=== PATIENT | female | born 1960 | race African-American/Black ===

== ENCOUNTER 2019-03-21 16:13 | Inpatient (IN) | payer OTHER ==
[~2019-03-21] VITALS: Ht 162.6 cm; Wt 102.5 kg
[2019-03-21] MEDS ORDERED: RANI150T7 PO (16:38)
[2019-03-21] MEDS ORDERED: bp meds PO (16:38)
[2019-03-21] MEDS ORDERED: MethylPREDNISolone SOD SUCC 125 MG/2 ML VIAL IVP ONE (16:45)
[2019-03-21] MEDS ORDERED: IPRATROPIUM BROMIDE 0.5 MG/2.5 ML NEB SOLUTION NEB ONE (16:45)
[2019-03-21] MEDS ORDERED: ALBUTEROL SULFATE 2.5 MG/0.5 ML NEB SOLUTION NEB ONE (16:45)
[2019-03-21 16:47] LABS: HEMATOCRIT 46.6 % (36-46); HEMOGLOBIN 15.2 g/dL (12.0-16.0); MEAN CORPUSCULAR HEMOGLOBIN 28.1 pg (26.0-34.0); MEAN CORPUSCULAR HGB CONC 32.6 G/dL (31.0-37.0); MEAN CORPUSCULAR VOLUME 86 fL (80-100); PLATELET COUNT (AUTO) 133 K/uL (150-450); RED BLOOD CELL COUNT(AUTO) 5.42 MIL/uL (4.00-5.20); RED CELL DISTRIBUTION WIDTH 15.9 % (11.5-14.5)
[2019-03-21 16:59] LABS: ANION GAP 8 mmol/L (8-16); CALCIUM, TOTAL 9.1 mg/dL (8.8-10.5); CARBON DIOXIDE 28 mmol/L (22-29); CHLORIDE 97 mmol/L (98-107); CREATININE 1.66 mg/dL (0.60-1.30); GLOMERULAR FILTR. RATE CALC 39 mL/min (>60); GLUCOSE,RANDOM 165 mg/dL (70-110); POTASSIUM 3.9 mmol/L (3.5-5.1); SODIUM SERUM 133 mmol/L (136-145); UREA NITROGEN, BLOOD 23 mg/dL (7-18)
[2019-03-21 16:59] LABS: APPEARANCE,URINE TURBID (CLEAR); GLUCOSE, URINE (UA) NEGATIVE (NEGATIVE); KETONES,URINE NEGATIVE (NEGATIVE); LEUKOCYTE ESTERASE ,URINE MODERATE (NEGATIVE); NITRATE,URINE NEGATIVE (NEGATIVE); OCCULT BLOOD,URINE LARGE (NEGATIVE); PH,URINE 5.5 (5.0-8.0); PROTEIN,URINE SEE CONFIRM (NEGATIVE)
[2019-03-21 17:00] LABS: BILIRUBIN,URINE PRELIM. POSITIVE (NEGATIVE)
[2019-03-21 17:05] LABS: ALANINE AMINOTRANSFERASE 80 U/L (12-78); ALBUMIN 2.7 g/dL (3.4-5.0); ALKALINE PHOSPHATASE 92 U/L (46-116); ASPARTATE AMINOTRANSFERASE 103 U/L (15-37); BILIRUBIN,TOTAL 0.9 mg/dL (0.1-1.0); LIPASE 577 U/L (73-393); TOTAL PROTEIN, SERUM 8.1 g/dL (6.4-8.2)
[2019-03-21 17:09] LABS: AMMONIA < 10 umol/L (11-32); TROPONIN I < 0.02 ng/mL (0.00-0.05)
[2019-03-21 17:13] LABS: SULFOSALICYLIC ACID,URINE 3+ (Negative)
[2019-03-21 17:14] LABS: BACTERIA,URINE Few /HPF (None Seen); SQUAMOUS EPITHELIAL CELL,UR Rare /LPF (None Seen)
[2019-03-21 17:15] LABS: BAND NEUTROPHILS % (MANUAL) 22 % (0-5); LYMPHOCYTES % (MANUAL) 7 % (22-44); MONOCYTES % (MANUAL) 7 % (2-9); SEGMENTED NEUTROPHILS % 64 % (40-70)
[2019-03-21] MEDS ORDERED: LORazepam 2 MG/ML VIAL IVP ONE (17:15)
[2019-03-21] MEDS ORDERED: SODIUM CHLORIDE 0.9% 1,500 ML IV ONE (17:15)
[2019-03-21] MEDS ORDERED: ACETAMINOPHEN 1000 MG/ISO-OSM 100 ML IV ONE (17:15)
[2019-03-21 17:18] LABS: INFLUENZA TYPE A NEGATIVE FOR TYPE A (NEGATIVE); INFLUENZA TYPE B NEGATIVE FOR TYPE B (NEGATIVE)
[2019-03-21 17:20] LABS: PLATELET MORPHOLOGY COMMENT LARGE PLTS PRESENT
[2019-03-21 17:22] LABS: B-TYPE NATRIURETIC PEPTIDE 51 pg/mL (0-100)
[2019-03-21 17:29] LABS: ABG A-A DIFF O2 381.1 mmHg (10-20.0); ABG BASE EXCESS 0.3 mmol/L (-2.0-3.0); ABG HCO3 24.4 mmol/L (22.0-26.0); ABG METHEMOGLOBIN 0.2 % (0.0-1.5); ABG OXYGEN CONTENT 20.6 mL/dL (15.0-23.0); ABG OXYGEN SATURATION 97.6 % (95.0-98.0); ABG OXYHEMOGLOBIN 96.4 % (94.0-100.0); ABG PCO2 53 mmHg (35-45); ABG PH 7.317 (7.35-7.450); ABG TOTAL HEMOGLOBIN 15.1 G/dL (12.0-18.0); PO2, ARTERIAL BG 125.2 mmHg (84.0-92.0); SOURCE, BLOOD GAS ARTERIAL
[2019-03-21 17:30] LABS: O2 DEVICE,BLOOD GAS NON REBREATHER (ROOM AIR); SITE, BLOOD GAS LFT RADIAL
[2019-03-21 17:34] LABS: GLUCOSE,POINT OF CARE 162 MG/DL (70-110)
[2019-03-21] MEDS ORDERED: AZITHROMYCIN 500 MG/NS 250 ML IV ONE (18:30)
[2019-03-21 18:38] LABS: LACTIC ACID 1.4 mmol/L (0.4-2.0)
[2019-03-21 18:45] LABS: ABG BASE EXCESS -1.9 mmol/L (-2.0-3.0); ABG CARBOXYHEMOGLOBIN 0.8 % (0.0-1.5); ABG METHEMOGLOBIN 0.3 % (0.0-1.5); ABG OXYGEN CONTENT 18.8 mL/dL (15.0-23.0); ABG OXYGEN SATURATION 92.2 % (95.0-98.0); ABG OXYHEMOGLOBIN 91.2 % (94.0-100.0); ABG PCO2 44 mmHg (35-45); ABG PH 7.347 (7.35-7.450); ABG TOTAL HEMOGLOBIN 14.7 G/dL (12.0-18.0); PO2, ARTERIAL BG 78.1 mmHg (84.0-92.0); SOURCE, BLOOD GAS ARTERIAL
[2019-03-21] MEDS ORDERED: 0.9% SODIUM CHLORIDE 10 ML SYRINGE IVP PRN (18:45)
[2019-03-21] MEDS ORDERED: ONDANSETRON HCL 4 MG/2 ML VIAL IVP PRN ×2 (18:45→20:00)
[2019-03-21 18:53] LABS: SITE, BLOOD GAS FEMORAL
[2019-03-21 18:54] LABS: O2 DEVICE,BLOOD GAS NC (ROOM AIR)
[2019-03-21] MEDS ORDERED: SODIUM CHLORIDE 0.9% 1,000 ML IV ONE (19:00)
[2019-03-21] MEDS ORDERED: VANCOMYCIN HCL 1 GM/D5% WATER 200 ML IV SCH (20:00)
[2019-03-21] MEDS ORDERED: POTASSIUM CHL 10 MEQ/WATER 50 ML IV PRN (20:00)
[2019-03-21] MEDS ORDERED: HYDROCODONE/ACETAMINOPHEN 5-325 MG TABLET PO PRN (20:00)
[2019-03-21] MEDS ORDERED: MAGNESIUM SULFATE 4 GM/WATER 100 ML IV PRN (20:00)
[2019-03-21] MEDS ORDERED: MORPHINE SULFATE 2 MG/ML SYRINGE IVP PRN (20:00)
[2019-03-21] MEDS ORDERED: MAGNESIUM SULFATE 2 GM/WATER 50 ML IV PRN (20:00)
[2019-03-21] MEDS ORDERED: ZOLPIDEM TARTRATE 5 MG TABLET PO PRN (20:00)
[2019-03-21] MEDS ORDERED: ACETAMINOPHEN 325 MG TABLET PO PRN (20:00)
[2019-03-21] MEDS ORDERED: DEXTROSE 50%-WATER 25 GM/50 ML SYRINGE IVP PRN (20:00)
[2019-03-21] MEDS ORDERED: MAGNESIUM OXIDE 400 MG TABLET PO PRN (20:00)
[2019-03-21] MEDS ORDERED: MAGNESIUM HYDROXIDE SUSPENSION 30 ML UDCUP PO PRN (20:00)
[2019-03-21] MEDS ORDERED: BISACODYL 10 MG RECTAL RECTAL SUPPOSITORY PR PRN (20:00)
[2019-03-21] MEDS ORDERED: POTASSIUM CHLORIDE 20 MEQ ER TABLET PO PRN ×2 (20:00)
[2019-03-21] MEDS: SODIUM CHLORIDE 0.9% 1,000 ML IV SCH (20:41)
[2019-03-21] MEDS ORDERED: VANCOMYCIN HCL 1.5 GM in DEXTROSE 5%-WATER 250 ML IV ONE (21:00)
[2019-03-21] MEDS: ALBUTEROL SULFATE 2.5 MG/0.5 ML NEB SOLUTION NEB SCH ×2 (21:15→23:34)
[2019-03-21] MEDS: IPRATROPIUM BROMIDE 0.5 MG/2.5 ML NEB SOLUTION NEB SCH ×2 (21:15→23:34)
[2019-03-21] MEDS: HEPARIN SODIUM,PORCINE 5,000 UNITS/ML VIAL SQ SCH (22:29)
[2019-03-21 23:44] LABS: GLUCOSE,POINT OF CARE 229 MG/DL (70-110)
[2019-03-22 00:27] LABS: BASOPHILS % (AUTO) 0.6 % (0.0-2.0); EOSINOPHILS % (AUTO) 0 % (1.0-6.0); HEMATOCRIT 43.8 % (36-46); HEMOGLOBIN 14.1 g/dL (12.0-16.0); LYMPHOCYTES # (AUTO) 1.4 K/uL (1.0-4.8); LYMPHOCYTES % (AUTO) 8.8 % (22.0-44.0); MEAN CORPUSCULAR HEMOGLOBIN 28.3 pg (26.0-34.0); MEAN CORPUSCULAR HGB CONC 32.2 G/dL (31.0-37.0); MEAN CORPUSCULAR VOLUME 88 fL (80-100); MONOCYTES # (AUTO) 0.8 K/uL (0.1-1.0); MONOCYTES % (AUTO) 4.9 % (2.0-9.0); NEUTROPHILS # (AUTO) 13.4 K/uL (1.8-7.7); PLATELET COUNT (AUTO) 109 K/uL (150-450); RED BLOOD CELL COUNT(AUTO) 4.99 MIL/uL (4.00-5.20); RED CELL DISTRIBUTION WIDTH 16.2 % (11.5-14.5)
[2019-03-22 00:28] LABS: CALCIUM, TOTAL 8.1 mg/dL (8.8-10.5); CREATININE 1.98 mg/dL (0.60-1.30); POTASSIUM 3.9 mmol/L (3.5-5.1)
[2019-03-22 00:33] LABS: ALBUMIN 2.2 g/dL (3.4-5.0); BILIRUBIN,TOTAL 0.9 mg/dL (0.1-1.0); TOTAL PROTEIN, SERUM 6.7 g/dL (6.4-8.2)
[2019-03-22 00:40] LABS: NEUTROPHILS % (AUTO) 85.7 % (40.0-70.0)
[2019-03-22 00:54] LABS: LACTIC ACID 1.8 mmol/L (0.4-2.0)
[2019-03-22] MEDS: ALBUTEROL SULFATE 2.5 MG/0.5 ML NEB SOLUTION NEB SCH ×2 (03:11→08:00)
[2019-03-22] MEDS: IPRATROPIUM BROMIDE 0.5 MG/2.5 ML NEB SOLUTION NEB SCH ×2 (03:11→07:59)
[2019-03-22] MEDS: SODIUM CHLORIDE 0.9% 1,000 ML IV SCH ×2 (06:58→15:20)
[2019-03-22] MEDS: HEPARIN SODIUM,PORCINE 5,000 UNITS/ML VIAL SQ SCH ×2 (08:38→19:50)
[2019-03-22] MEDS: PANTOPRAZOLE SODIUM 40 MG/VIAL IVP SCH (08:38)
[2019-03-22] MEDS: VANCOMYCIN HCL 1.5 GM in DEXTROSE 5%-WATER 250 ML IV SCH (08:38)
[2019-03-22 08:58] LABS: BASOPHILS % (AUTO) 0.2 % (0.0-2.0); EOSINOPHILS % (AUTO) 0 % (1.0-6.0); HEMATOCRIT 43.3 % (36-46); HEMOGLOBIN 14.1 g/dL (12.0-16.0); LYMPHOCYTES # (AUTO) 1.1 K/uL (1.0-4.8); LYMPHOCYTES % (AUTO) 6.9 % (22.0-44.0); MEAN CORPUSCULAR HEMOGLOBIN 28.1 pg (26.0-34.0); MEAN CORPUSCULAR HGB CONC 32.5 G/dL (31.0-37.0); MEAN CORPUSCULAR VOLUME 87 fL (80-100); MONOCYTES # (AUTO) 0.5 K/uL (0.1-1.0); MONOCYTES % (AUTO) 3.1 % (2.0-9.0); NEUTROPHILS # (AUTO) 14.2 K/uL (1.8-7.7); PLATELET COUNT (AUTO) 124 K/uL (150-450); RED BLOOD CELL COUNT(AUTO) 5.01 MIL/uL (4.00-5.20); RED CELL DISTRIBUTION WIDTH 16.5 % (11.5-14.5)
[2019-03-22 09:01] LABS: NEUTROPHILS % (AUTO) 89.8 % (40.0-70.0); PLATELET MORPHOLOGY COMMENT GIANT PLTS PRESENT
[2019-03-22 09:07] LABS: INR 1.1 (0.9-1.1); PROTHROMBIN TIME 11.8 SEC (9.4-11.6)
[2019-03-22 09:12] LABS: HEMOGLOBIN A1C 7.2 % (4.5-6.2)
[2019-03-22 09:29] LABS: AMMONIA < 10 umol/L (11-32)
[2019-03-22 09:32] LABS: ALBUMIN 2.4 g/dL (3.4-5.0); BILIRUBIN,TOTAL 0.5 mg/dL (0.1-1.0); CALCIUM, TOTAL 8.2 mg/dL (8.8-10.5); CREATININE 1.91 mg/dL (0.60-1.30); MAGNESIUM 2.2 mg/dL (1.80-2.40); PHOSPHORUS 4.5 mg/dL (2.5-4.9); POTASSIUM 4.6 mmol/L (3.5-5.1)
[2019-03-22 10:02] LABS: TROPONIN I < 0.02 ng/mL (0.00-0.05)
[2019-03-22 11:15] LABS: FREE T4 (FREE THYROXINE) 0.98 ng/dL (0.76-1.46)
[2019-03-22 15:49] VITALS: BP 129/61
[2019-03-22] MEDS ORDERED: LISI-662 PO (17:28)
[2019-03-22] MEDS ORDERED: HYDR25TA PO (17:28)
[2019-03-22] MEDS: AZITHROMYCIN 500 MG/NS 250 ML IV SCH (17:29)
[2019-03-22] MEDS: INSULIN LISPRO 100 UNITS/ML SQ PRN ×2 (17:48→21:18)
[2019-03-22 19:38] VITALS: BP 108/56
[2019-03-22] MEDS: CefTRIAXone 1 GM/DEXTROSE 50 ML IV SCH (19:50)
[2019-03-23 00:23] VITALS: BP 121/79
[2019-03-23] MEDS: SODIUM CHLORIDE 0.9% 1,000 ML IV SCH ×3 (02:31→20:39)
[2019-03-23 03:46] LABS: AMPHET/METH SCREEN,URINE POSITIVE (NEGATIVE); BARBITURATE SCREEN, URINE NEGATIVE (NEGATIVE); BENZODIAZEPINES SCREEN,URINE NEGATIVE (NEGATIVE); CANNABINOID SCREEN,URINE NEGATIVE (NEGATIVE); COCAINE SCREEN,URINE NEGATIVE (NEGATIVE); METHADONE SCREEN, URINE NEGATIVE (NEGATIVE); OPIATE SCREEN,URINE NEGATIVE (NEGATIVE)
[2019-03-23 03:47] LABS: PHENCYCLIDINE SCREEN,URINE NEGATIVE (NEGATIVE)
[2019-03-23 04:31] VITALS: BP 149/83
[2019-03-23] MEDS: INSULIN LISPRO 100 UNITS/ML SQ PRN ×4 (05:30→20:28)
[2019-03-23 06:09] LABS: GLUCOMETER DEV NAME(LOC) 5S.1; GLUCOSE,POINT OF CARE 234 MG/DL (70-110)
[2019-03-23 06:10] LABS: GLUCOMETER DEV NAME(LOC) 5S.1; GLUCOSE,POINT OF CARE 266 MG/DL (70-110)
[2019-03-23 06:10] LABS: GLUCOMETER DEV NAME(LOC) 5S.1; GLUCOSE,POINT OF CARE 165 MG/DL (70-110)
[2019-03-23 06:34] LABS: CALCIUM, TOTAL 9.1 mg/dL (8.8-10.5); CREATININE 1.74 mg/dL (0.60-1.30); POTASSIUM 4.7 mmol/L (3.5-5.1); VANCOMYCIN,RANDOM 16.2 mcg/mL (25.0-50.0)
[2019-03-23 07:59] VITALS: BP 129/91
[2019-03-23] MEDS: HEPARIN SODIUM,PORCINE 5,000 UNITS/ML VIAL SQ SCH ×2 (08:14→20:26)
[2019-03-23] MEDS: PANTOPRAZOLE SODIUM 40 MG/VIAL IVP SCH (08:14)
[2019-03-23] MEDS: VANCOMYCIN HCL 1.5 GM in DEXTROSE 5%-WATER 250 ML IV SCH (08:14)
[2019-03-23] MEDS: NICOTINE 21 MG/24 HOUR PATCH TD SCH (08:15)
[2019-03-23 11:38] VITALS: BP 128/70
[2019-03-23 15:09] LABS: GLUCOMETER DEV NAME(LOC) 5S.2; GLUCOSE,POINT OF CARE 166 MG/DL (70-110)
[2019-03-23] MEDS: AZITHROMYCIN 500 MG/NS 250 ML IV SCH (15:35)
[2019-03-23 15:57] VITALS: BP 146/92
[2019-03-23] MEDS: ALBUTEROL SULFATE 2.5 MG/0.5 ML NEB SOLUTION NEB PRN (16:32)
[2019-03-23] MEDS: IPRATROPIUM BROMIDE 0.5 MG/2.5 ML NEB SOLUTION NEB PRN (16:32)
[2019-03-23] MEDS: MethylPREDNISolone SOD SUCC 125 MG/2 ML VIAL IVP SCH (17:28)
[2019-03-23] MEDS: CefTRIAXone 1 GM/DEXTROSE 50 ML IV SCH (17:36)
[2019-03-23 19:25] VITALS: BP 136/77
[2019-03-24 00:03] VITALS: BP 147/54
[2019-03-24] MEDS: MethylPREDNISolone SOD SUCC 125 MG/2 ML VIAL IVP SCH ×4 (00:10→18:07)
[2019-03-24 04:17] VITALS: BP 135/78
[2019-03-24] MEDS: INSULIN LISPRO 100 UNITS/ML SQ PRN ×4 (05:33→20:58)
[2019-03-24 06:24] LABS: CALCIUM, TOTAL 9.3 mg/dL (8.8-10.5); CREATININE 1.61 mg/dL (0.60-1.30); POTASSIUM 4.7 mmol/L (3.5-5.1)
[2019-03-24 07:58] VITALS: BP 157/93
[2019-03-24] MEDS: PANTOPRAZOLE SODIUM 40 MG/VIAL IVP SCH (08:01)
[2019-03-24] MEDS: HEPARIN SODIUM,PORCINE 5,000 UNITS/ML VIAL SQ SCH ×2 (08:02→20:56)
[2019-03-24] MEDS: VANCOMYCIN HCL 1.5 GM in DEXTROSE 5%-WATER 250 ML IV SCH (08:02)
[2019-03-24] MEDS: SODIUM CHLORIDE 0.9% 1,000 ML IV SCH (08:03)
[2019-03-24] MEDS: NICOTINE 21 MG/24 HOUR PATCH TD SCH (08:03)
[2019-03-24 11:26] VITALS: BP 150/105
[2019-03-24 11:54] LABS: GLUCOMETER DEV NAME(LOC) 5S.1; GLUCOSE,POINT OF CARE 240 MG/DL (70-110)
[2019-03-24 16:06] VITALS: BP 159/102
[2019-03-24] MEDS: AZITHROMYCIN 500 MG/NS 250 ML IV SCH (16:26)
[2019-03-24] MEDS: CefTRIAXone 1 GM/DEXTROSE 50 ML IV SCH (18:19)
[2019-03-24 18:20] LABS: GLUCOMETER DEV NAME(LOC) 5S.1; GLUCOSE,POINT OF CARE 207 MG/DL (70-110)
[2019-03-24 20:27] VITALS: BP 153/90
[2019-03-24] MEDS ORDERED: 0.9% SODIUM CHLORIDE 5 ML NEB SOLUTION NEB ONE (21:27)
[2019-03-24] MEDS: ALBUTEROL SULFATE 2.5 MG/0.5 ML NEB SOLUTION NEB PRN (21:31)
[2019-03-24] MEDS: IPRATROPIUM BROMIDE 0.5 MG/2.5 ML NEB SOLUTION NEB PRN (21:31)
[2019-03-25 00:13] VITALS: BP 153/84
[2019-03-25] MEDS: MethylPREDNISolone SOD SUCC 125 MG/2 ML VIAL IVP SCH ×4 (00:26→17:44)
[2019-03-25] MEDS: SODIUM CHLORIDE 0.9% 1,000 ML IV SCH ×3 (00:27→20:07)
[2019-03-25 02:59] LABS: GLUCOMETER DEV NAME(LOC) 5S.1; GLUCOSE,POINT OF CARE 219 MG/DL (70-110)
[2019-03-25 02:59] LABS: GLUCOMETER DEV NAME(LOC) 5S.2; GLUCOSE,POINT OF CARE 173 MG/DL (70-110)
[2019-03-25 02:59] LABS: GLUCOMETER DEV NAME(LOC) 5S.2; GLUCOSE,POINT OF CARE 126 MG/DL (70-110)
[2019-03-25 02:59] LABS: GLUCOMETER DEV NAME(LOC) 5S.2; GLUCOSE,POINT OF CARE 313 MG/DL (70-110)
[2019-03-25 04:33] VITALS: BP 145/76
[2019-03-25] MEDS: INSULIN LISPRO 100 UNITS/ML SQ PRN ×4 (05:47→20:47)
[2019-03-25 06:48] LABS: CALCIUM, TOTAL 9.3 mg/dL (8.8-10.5); CREATININE 1.27 mg/dL (0.60-1.30)
[2019-03-25 07:35] VITALS: BP 146/98
[2019-03-25] MEDS: VANCOMYCIN HCL 1 GM/D5% WATER 200 ML IV SCH ×2 (09:08→20:06)
[2019-03-25] MEDS: NICOTINE 21 MG/24 HOUR PATCH TD SCH (09:08)
[2019-03-25] MEDS: PANTOPRAZOLE SODIUM 40 MG/VIAL IVP SCH (09:08)
[2019-03-25] MEDS: HEPARIN SODIUM,PORCINE 5,000 UNITS/ML VIAL SQ SCH ×2 (09:08→20:06)
[2019-03-25 11:44] VITALS: BP 160/104
[2019-03-25 12:00] LABS: GLUCOMETER DEV NAME(LOC) 5S.1; GLUCOSE,POINT OF CARE 211 MG/DL (70-110)
[2019-03-25 12:00] LABS: GLUCOMETER DEV NAME(LOC) 5S.2; GLUCOSE,POINT OF CARE 238 MG/DL (70-110)
[2019-03-25 12:01] LABS: ORGANISM ID Not indicated.; S PNEUMO SOURCE Urine; STREP PNEUMONIAE AG URINE Negative (Negative); STREP.PNEUMO BODY FLUID CULT. Not Indicated
[2019-03-25] MEDS: AZITHROMYCIN 500 MG/NS 250 ML IV SCH (15:13)
[2019-03-25 16:28] VITALS: BP 137/82
[2019-03-25] MEDS ORDERED: HydrALAZINE HCL 20 MG/ML VIAL IVP PRN (16:30)
[2019-03-25] MEDS ORDERED: AmLODIPine BESYLATE 10 MG TABLET PO ONE (16:30)
[2019-03-25 17:25] LABS: GLUCOMETER DEV NAME(LOC) 5S.2; GLUCOSE,POINT OF CARE 226 MG/DL (70-110)
[2019-03-25] MEDS: CefTRIAXone 1 GM/DEXTROSE 50 ML IV SCH (17:50)
[2019-03-25 20:53] VITALS: BP 143/69
[2019-03-25 23:30] LABS: GLUCOMETER DEV NAME(LOC) 5S.1; GLUCOSE,POINT OF CARE 224 MG/DL (70-110)
[2019-03-26] VITALS (8 sets, daily range): BP systolic 116–172; BP diastolic 64–105
[2019-03-26] MEDS: MethylPREDNISolone SOD SUCC 125 MG/2 ML VIAL IVP SCH ×5 (00:03→23:18)
[2019-03-26] MEDS: INSULIN LISPRO 100 UNITS/ML SQ PRN ×4 (05:45→20:46)
[2019-03-26 07:01] LABS: CALCIUM, TOTAL 9.1 mg/dL (8.8-10.5); CREATININE 1.18 mg/dL (0.60-1.30); POTASSIUM 3.9 mmol/L (3.5-5.1); VANCOMYCIN,RANDOM 21.3 mcg/mL (25.0-50.0)
[2019-03-26] MEDS: VANCOMYCIN HCL 1 GM/D5% WATER 200 ML IV SCH ×2 (08:40→21:47)
[2019-03-26] MEDS: SODIUM CHLORIDE 0.9% 1,000 ML IV SCH (08:40)
[2019-03-26] MEDS: NICOTINE 21 MG/24 HOUR PATCH TD SCH (08:41)
[2019-03-26] MEDS: PANTOPRAZOLE SODIUM 40 MG/VIAL IVP SCH (08:41)
[2019-03-26] MEDS: HEPARIN SODIUM,PORCINE 5,000 UNITS/ML VIAL SQ SCH ×2 (08:41→20:49)
[2019-03-26] MEDS: AmLODIPine BESYLATE 10 MG TABLET PO SCH (08:41)
[2019-03-26 13:29] LABS: GLUCOMETER DEV NAME(LOC) 5S.1; GLUCOSE,POINT OF CARE 226 MG/DL (70-110)
[2019-03-26 13:29] LABS: GLUCOMETER DEV NAME(LOC) 5S.2; GLUCOSE,POINT OF CARE 275 MG/DL (70-110)
[2019-03-26] MEDS: AZITHROMYCIN 500 MG/NS 250 ML IV SCH (18:10)
[2019-03-26] MEDS: CefTRIAXone 1 GM/DEXTROSE 50 ML IV SCH (20:50)
[2019-03-27] MEDS: SODIUM CHLORIDE 0.9% 1,000 ML IV SCH (01:28)
[2019-03-27 03:40] LABS: GLUCOMETER DEV NAME(LOC) 5S.1; GLUCOSE,POINT OF CARE 257 MG/DL (70-110)
[2019-03-27 03:40] LABS: GLUCOMETER DEV NAME(LOC) 5S.1; GLUCOSE,POINT OF CARE 208 MG/DL (70-110)
[2019-03-27 05:31] LABS: CALCIUM, TOTAL 8.6 mg/dL (8.8-10.5); CREATININE 1.14 mg/dL (0.60-1.30); POTASSIUM 3.6 mmol/L (3.5-5.1)
[2019-03-27] MEDS: INSULIN LISPRO 100 UNITS/ML SQ PRN ×4 (05:52→21:00)
[2019-03-27] MEDS: MethylPREDNISolone SOD SUCC 125 MG/2 ML VIAL IVP SCH ×4 (05:54→23:29)
[2019-03-27 05:57] VITALS: BP 145/68
[2019-03-27 08:00] VITALS: BP 154/92
[2019-03-27] MEDS: PANTOPRAZOLE SODIUM 40 MG/VIAL IVP SCH (08:23)
[2019-03-27] MEDS: HEPARIN SODIUM,PORCINE 5,000 UNITS/ML VIAL SQ SCH ×2 (08:23→20:55)
[2019-03-27] MEDS: AmLODIPine BESYLATE 10 MG TABLET PO SCH (08:23)
[2019-03-27] MEDS: VANCOMYCIN HCL 1 GM/D5% WATER 200 ML IV SCH ×2 (08:23→20:49)
[2019-03-27] MEDS: NICOTINE 21 MG/24 HOUR PATCH TD SCH (08:25)
[2019-03-27 10:34] LABS: GLUCOMETER DEV NAME(LOC) 5S.2; GLUCOSE,POINT OF CARE 221 MG/DL (70-110)
[2019-03-27 11:36] VITALS: BP 154/67
[2019-03-27] MEDS ORDERED: NIFEdipine 30 MG ER TABLET PO ONE (15:30)
[2019-03-27 15:42] VITALS: BP 159/90
[2019-03-27 16:07] LABS: HEMATOCRIT 46.6 % (36-46); HEMOGLOBIN 14.9 g/dL (12.0-16.0); MEAN CORPUSCULAR HGB CONC 32.1 G/dL (31.0-37.0); MEAN CORPUSCULAR VOLUME 87 fL (80-100); PLATELET COUNT (AUTO) 301 K/uL (150-450); RED BLOOD CELL COUNT(AUTO) 5.34 MIL/uL (4.00-5.20); RED CELL DISTRIBUTION WIDTH 16.4 % (11.5-14.5)
[2019-03-27 16:15] LABS: ALBUMIN 2.5 g/dL (3.4-5.0); BILIRUBIN,DIRECT 0.1 mg/dL (0.00-0.20); BILIRUBIN,TOTAL 0.6 mg/dL (0.1-1.0)
[2019-03-27] MEDS: AZITHROMYCIN 500 MG/NS 250 ML IV SCH (16:48)
[2019-03-27 17:57] LABS: BAND NEUTROPHILS % (MANUAL) 4 % (0-5); LYMPHOCYTES % (MANUAL) 9 % (22-44); METAMYELOCYTES % 2 % (0-0); MONOCYTES % (MANUAL) 8 % (2-9); MYELOCYTES % 5 % (0-0); SEGMENTED NEUTROPHILS % 72 % (40-70)
[2019-03-27] MEDS: CefTRIAXone 1 GM/DEXTROSE 50 ML IV SCH (18:05)
[2019-03-27 18:57] LABS: PATHOLOGY REVIEW, DIFF YES
[2019-03-27] MEDS ORDERED: SODIUM CHLORIDE 0.9% 1,000 ML IV ONE (20:12)
[2019-03-27 20:57] VITALS: BP 160/91
[2019-03-27 23:16] VITALS: BP 139/75
[2019-03-28 04:39] VITALS: BP 136/79
[2019-03-28 05:39] LABS: HEMATOCRIT 47.1 % (36-46); HEMOGLOBIN 15.7 g/dL (12.0-16.0); MEAN CORPUSCULAR HEMOGLOBIN 28.1 pg (26.0-34.0); MEAN CORPUSCULAR HGB CONC 33.3 G/dL (31.0-37.0); MEAN CORPUSCULAR VOLUME 84 fL (80-100); PLATELET COUNT (AUTO) 335 K/uL (150-450); RED BLOOD CELL COUNT(AUTO) 5.58 MIL/uL (4.00-5.20); RED CELL DISTRIBUTION WIDTH 16.2 % (11.5-14.5)
[2019-03-28 05:49] LABS: ALBUMIN 2.4 g/dL (3.4-5.0); BILIRUBIN,TOTAL 0.8 mg/dL (0.1-1.0); CALCIUM, TOTAL 8.9 mg/dL (8.8-10.5); CREATININE 1.14 mg/dL (0.60-1.30); POTASSIUM 3.6 mmol/L (3.5-5.1); TOTAL PROTEIN, SERUM 6.9 g/dL (6.4-8.2)
[2019-03-28] MEDS: MethylPREDNISolone SOD SUCC 125 MG/2 ML VIAL IVP SCH (06:13)
[2019-03-28] MEDS: INSULIN LISPRO 100 UNITS/ML SQ PRN ×4 (06:25→22:39)
[2019-03-28] MEDS: NICOTINE 21 MG/24 HOUR PATCH TD SCH (08:23)
[2019-03-28] MEDS: PredniSONE 20 MG TABLET PO SCH (08:23)
[2019-03-28] MEDS: PANTOPRAZOLE SODIUM 40 MG/VIAL IVP SCH (08:23)
[2019-03-28] MEDS: HEPARIN SODIUM,PORCINE 5,000 UNITS/ML VIAL SQ SCH ×2 (08:23→21:44)
[2019-03-28] MEDS: VANCOMYCIN HCL 1 GM/D5% WATER 200 ML IV SCH ×2 (08:24→21:45)
[2019-03-28] MEDS: NIFEdipine 30 MG ER TABLET PO SCH (08:24)
[2019-03-28] MEDS: AmLODIPine BESYLATE 10 MG TABLET PO SCH (08:24)
[2019-03-28 08:33] VITALS: BP 139/77
[2019-03-28 11:41] VITALS: BP 143/87
[2019-03-28 12:22] LABS: BAND NEUTROPHILS % (MANUAL) 3 % (0-5); LYMPHOCYTES % (MANUAL) 6 % (22-44); METAMYELOCYTES % 1 % (0-0); MONOCYTES % (MANUAL) 5 % (2-9); MYELOCYTES % 4 % (0-0); SEGMENTED NEUTROPHILS % 81 % (40-70)
[2019-03-28 15:56] VITALS: BP 142/84
[2019-03-28] MEDS: AZITHROMYCIN 500 MG/NS 250 ML IV SCH (16:25)
[2019-03-28] MEDS: CefTRIAXone 1 GM/DEXTROSE 50 ML IV SCH (18:58)
[2019-03-28 20:33] VITALS: BP 144/74
[2019-03-28 21:20] LABS: GLUCOMETER DEV NAME(LOC) 5S.2; GLUCOSE,POINT OF CARE 305 MG/DL (70-110)
[2019-03-28 21:21] LABS: GLUCOMETER DEV NAME(LOC) 5S.2; GLUCOSE,POINT OF CARE 232 MG/DL (70-110)
[2019-03-28 23:41] VITALS: BP 143/83
[2019-03-28 23:50] LABS: GLUCOMETER DEV NAME(LOC) 5S.1; GLUCOSE,POINT OF CARE 345 MG/DL (70-110)
[2019-03-28 23:50] LABS: GLUCOMETER DEV NAME(LOC) 5S.1; GLUCOSE,POINT OF CARE 327 MG/DL (70-110)
[2019-03-28 23:50] LABS: GLUCOMETER DEV NAME(LOC) 5S.1; GLUCOSE,POINT OF CARE 222 MG/DL (70-110)
[2019-03-28 23:50] LABS: GLUCOMETER DEV NAME(LOC) 5S.1; GLUCOSE,POINT OF CARE 311 MG/DL (70-110)
[2019-03-28 23:51] LABS: GLUCOMETER DEV NAME(LOC) 5S.1; GLUCOSE,POINT OF CARE 281 MG/DL (70-110)
[2019-03-29] VITALS (7 sets, daily range): BP systolic 141–153; BP diastolic 69–98
[2019-03-29 05:43] LABS: HEMATOCRIT 48.3 % (36-46); HEMOGLOBIN 15.8 g/dL (12.0-16.0); MEAN CORPUSCULAR HGB CONC 32.8 G/dL (31.0-37.0); MEAN CORPUSCULAR VOLUME 86 fL (80-100); RED BLOOD CELL COUNT(AUTO) 5.65 MIL/uL (4.00-5.20)
[2019-03-29 05:56] LABS: PLATELET COUNT (AUTO) 364 K/uL (150-450)
[2019-03-29 06:08] LABS: ALANINE AMINOTRANSFERASE 42 U/L (12-78); ALBUMIN 2.5 g/dL (3.4-5.0); ALKALINE PHOSPHATASE 78 U/L (46-116); ANION GAP 8 mmol/L (8-16); ASPARTATE AMINOTRANSFERASE 21 U/L (15-37); BILIRUBIN,TOTAL 0.8 mg/dL (0.1-1.0); CALCIUM, TOTAL 8.7 mg/dL (8.8-10.5); CARBON DIOXIDE 36 mmol/L (22-29); CHLORIDE 103 mmol/L (98-107); CREATININE 1.12 mg/dL (0.60-1.30); GLOMERULAR FILTR. RATE CALC > 60 mL/min (>60); GLUCOSE,RANDOM 167 mg/dL (70-110); POTASSIUM 3.4 mmol/L (3.5-5.1); SODIUM SERUM 147 mmol/L (136-145); TOTAL PROTEIN, SERUM 6.6 g/dL (6.4-8.2); UREA NITROGEN, BLOOD 35 mg/dL (7-18)
[2019-03-29] MEDS: INSULIN LISPRO 100 UNITS/ML SQ PRN ×4 (06:15→21:56)
[2019-03-29 07:09] LABS: GLUCOMETER DEV NAME(LOC) 5S.1; GLUCOSE,POINT OF CARE 172 MG/DL (70-110)
[2019-03-29 07:19] LABS: BAND NEUTROPHILS % (MANUAL) 2 % (0-5); LYMPHOCYTES % (MANUAL) 9 % (22-44); METAMYELOCYTES % 1 % (0-0); MONOCYTES % (MANUAL) 6 % (2-9); MYELOCYTES % 1 % (0-0); SEGMENTED NEUTROPHILS % 81 % (40-70)
[2019-03-29] MEDS: VANCOMYCIN HCL 1 GM/D5% WATER 200 ML IV SCH ×2 (08:49→19:18)
[2019-03-29] MEDS: NICOTINE 21 MG/24 HOUR PATCH TD SCH (08:50)
[2019-03-29] MEDS: NIFEdipine 30 MG ER TABLET PO SCH (08:50)
[2019-03-29] MEDS: AmLODIPine BESYLATE 10 MG TABLET PO SCH (08:50)
[2019-03-29] MEDS: PredniSONE 20 MG TABLET PO SCH (08:50)
[2019-03-29] MEDS: PANTOPRAZOLE SODIUM 40 MG/VIAL IVP SCH (08:51)
[2019-03-29] MEDS: HEPARIN SODIUM,PORCINE 5,000 UNITS/ML VIAL SQ SCH ×2 (08:51→19:52)
[2019-03-29 10:12] LABS: LEGIONELLA PNEUMO AG URINE Positive (Negative)
[2019-03-29 12:15] LABS: GLUCOMETER DEV NAME(LOC) 5S.1; GLUCOSE,POINT OF CARE 213 MG/DL (70-110)
[2019-03-29] MEDS: AZITHROMYCIN 500 MG/NS 250 ML IV SCH (15:19)
[2019-03-29] MEDS: CefTRIAXone 1 GM/DEXTROSE 50 ML IV SCH (18:22)
[2019-03-29] MEDS ORDERED: *CLINICAL-LEVOFLOXACIN IVPB DOSING CLINICAL ONE (20:00)
[2019-03-29 20:04] LABS: GLUCOMETER DEV NAME(LOC) 5S.1; GLUCOSE,POINT OF CARE 397 MG/DL (70-110)
[2019-03-29] MEDS ORDERED: LEVOFLOXACIN 750 MG/D5% WATER 150 ML IV SCH (21:00)
[2019-03-30 00:30] LABS: GLUCOMETER DEV NAME(LOC) 5S.1; GLUCOSE,POINT OF CARE 363 MG/DL (70-110)
[2019-03-30] MEDS ORDERED: SODIUM CHLORIDE 0.9% 250 ML IV ONE (03:49)
[2019-03-30 04:52] VITALS: BP 148/88
[2019-03-30 06:07] LABS: HEMATOCRIT 45.5 % (36-46); HEMOGLOBIN 14.6 g/dL (12.0-16.0); MEAN CORPUSCULAR HEMOGLOBIN 27.9 pg (26.0-34.0); MEAN CORPUSCULAR HGB CONC 32.1 G/dL (31.0-37.0); MEAN CORPUSCULAR VOLUME 87 fL (80-100); PLATELET COUNT (AUTO) 309 K/uL (150-450); RED BLOOD CELL COUNT(AUTO) 5.24 MIL/uL (4.00-5.20); RED CELL DISTRIBUTION WIDTH 16.1 % (11.5-14.5)
[2019-03-30 06:23] LABS: ALANINE AMINOTRANSFERASE 40 U/L (12-78); ALBUMIN 2.3 g/dL (3.4-5.0); ALKALINE PHOSPHATASE 70 U/L (46-116); ANION GAP 4 mmol/L (8-16); ASPARTATE AMINOTRANSFERASE 13 U/L (15-37); BILIRUBIN,TOTAL 0.8 mg/dL (0.1-1.0); CALCIUM, TOTAL 8.3 mg/dL (8.8-10.5); CARBON DIOXIDE 32 mmol/L (22-29); CHLORIDE 107 mmol/L (98-107); GLOMERULAR FILTR. RATE CALC > 60 mL/min (>60); GLUCOSE,RANDOM 107 mg/dL (70-110); POTASSIUM 3.7 mmol/L (3.5-5.1); SODIUM SERUM 143 mmol/L (136-145); TOTAL PROTEIN, SERUM 6.2 g/dL (6.4-8.2); UREA NITROGEN, BLOOD 33 mg/dL (7-18)
[2019-03-30 07:29] VITALS: BP 137/91
[2019-03-30 07:39] LABS: BAND NEUTROPHILS % (MANUAL) 0 % (0-5)
[2019-03-30 07:40] LABS: LYMPHOCYTES % (MANUAL) 16 % (22-44); MONOCYTES % (MANUAL) 5 % (2-9); SEGMENTED NEUTROPHILS % 79 % (40-70)
[2019-03-30] MEDS: NICOTINE 21 MG/24 HOUR PATCH TD SCH (08:14)
[2019-03-30] MEDS: VANCOMYCIN HCL 1 GM/D5% WATER 200 ML IV SCH (08:14)
[2019-03-30] MEDS: HEPARIN SODIUM,PORCINE 5,000 UNITS/ML VIAL SQ SCH (08:15)
[2019-03-30] MEDS: PANTOPRAZOLE SODIUM 40 MG/VIAL IVP SCH (08:16)
[2019-03-30] MEDS: NIFEdipine 30 MG ER TABLET PO SCH (08:16)
[2019-03-30] MEDS: AmLODIPine BESYLATE 10 MG TABLET PO SCH (08:17)
[2019-03-30] MEDS ORDERED: PredniSONE 10 MG TABLET PO SCH (09:00)
[2019-03-30 10:04] LABS: GLUCOMETER DEV NAME(LOC) 5S.1; GLUCOSE,POINT OF CARE 109 MG/DL (70-110)
[2019-03-30 11:22] VITALS: BP 143/80
[2019-03-30] MEDS: INSULIN LISPRO 100 UNITS/ML SQ PRN (11:41)
[2019-03-30 12:50] LABS: GLUCOMETER DEV NAME(LOC) 5S.1; GLUCOSE,POINT OF CARE 247 MG/DL (70-110)
[2019-03-30 15:59] VITALS: BP 142/84
[2019-03-30] MEDS ORDERED: PRED20 PO ×2 (16:37→16:38)
[2019-03-30] MEDS ORDERED: PRED10 PO (16:38)
[2019-03-30] MEDS ORDERED: IPRA4AER IH (16:39)
[2019-03-30] MEDS ORDERED: NICO-802 TD (16:39)
[2019-03-30] MEDS ORDERED: ADV100 IH (16:42)
[2019-03-30] MEDS ORDERED: AMLO-512 PO (16:43)
== END 2019-03-30 17:31 | disposition home or self-care (01) | DRG 720 ==
LOC: EMS 16:15 → 5S 03-22 14:31
PROVIDERS: ADMIT Internal Medicine; ATTEND Internal Medicine
PROC: 5A09357 Assistance with Respiratory Ventilation, Less than 24 Consecutive Hours, Continuous Positive Airway Pressure (ICD-10-PCS; principal; 2019-03-22)
PROC: 5A09357 Assistance with Respiratory Ventilation, Less than 24 Consecutive Hours, Continuous Positive Airway Pressure (ICD-10-PCS; 2019-03-22)
DX: A41.9 Sepsis, unspecified organism (principal); J96.01 Acute respiratory failure with hypoxia; A48.1 Legionnaires' disease; N17.9 Acute kidney failure, unspecified; J96.02 Acute respiratory failure with hypercapnia; J18.9 Pneumonia, unspecified organism; D69.59 Other secondary thrombocytopenia; E44.0 Moderate protein-calorie malnutrition; E11.65 Type 2 diabetes mellitus with hyperglycemia; E66.01 Morbid (severe) obesity due to excess calories; N39.0 Urinary tract infection, site not specified; R74.0 Nonspecific elevation of levels of transaminase and lactic acid dehydrogenase [LDH]; R74.8 Abnormal levels of other serum enzymes; E87.1 Hypo-osmolality and hyponatremia; G47.33 Obstructive sleep apnea (adult) (pediatric); Z68.41 Body mass index [BMI] 40.0-44.9, adult; I10 Essential (primary) hypertension; J44.1 Chronic obstructive pulmonary disease with (acute) exacerbation; K21.9 Gastro-esophageal reflux disease without esophagitis; R65.20 Severe sepsis without septic shock; Z80.3 Family history of malignant neoplasm of breast; Z82.49 Family history of ischemic heart disease and other diseases of the circulatory system; Z87.891 Personal history of nicotine dependence
CPT/HCPCS: 36600; 51702; 70450; 71250; 82248; 82805; 83036; 83605; 83735; 84100; 84132; 84439; 84443; 84481; 87040; 87086; 87449; 87804; 87899; 93005; 93306; 94640; 94660; 96365; 96366; 96367; 96368; 96375; 97116; 97162; 97530; 99291; C9113; G0378; G0480; J0131; J0456; J0696; J1644; J1956; J2060; J2930; J3370; J7030; J7050; J7060

== ENCOUNTER 2019-09-28 12:53 | Emergency (ER) | payer OTHER ==
[~2019-09-28] VITALS: Ht 157.5 cm; Wt 77.3 kg
[~2019-09-28 12:53] MED LIST: ADV100 IH; AMLO10TA7 PO; HYDR25TA PO; IPRA4AER IH; LISI-662 PO; NICO-802 TD; PRED10 PO; PRED20 PO; RANI150T7 PO
[2019-09-28] MEDS ORDERED: ATOR40TA28 PO (13:15)
[2019-09-28] MEDS ORDERED: METF-960 PO (13:15)
[2019-09-28] MEDS ORDERED: ASPI-1182 PO (13:15)
[2019-09-28] MEDS ORDERED: ALBUTEROL SULFATE 2.5 MG/0.5 ML NEB SOLUTION NEB ONE (14:15)
[2019-09-28] MEDS ORDERED: PredniSONE 20 MG TABLET PO ONE (14:15)
[2019-09-28 14:24] LABS: BASOPHILS % (AUTO) 1.1 % (0.0-2.0); EOSINOPHILS % (AUTO) 4.1 % (1.0-6.0); HEMATOCRIT 45.4 % (36-46); HEMOGLOBIN 14.8 g/dL (12.0-16.0); LYMPHOCYTES # (AUTO) 3.6 K/uL (1.0-4.8); LYMPHOCYTES % (AUTO) 28.6 % (22.0-44.0); MEAN CORPUSCULAR HEMOGLOBIN 27.9 pg (26.0-34.0); MEAN CORPUSCULAR HGB CONC 32.6 G/dL (31.0-37.0); MEAN CORPUSCULAR VOLUME 86 fL (80-100); MONOCYTES # (AUTO) 0.8 K/uL (0.1-1.0); MONOCYTES % (AUTO) 6.4 % (2.0-9.0); NEUTROPHILS # (AUTO) 7.5 K/uL (1.8-7.7); NEUTROPHILS % (AUTO) 59.8 % (40.0-70.0); PLATELET COUNT (AUTO) 241 K/uL (150-450); RED CELL DISTRIBUTION WIDTH 17.2 % (11.5-14.5)
[2019-09-28 14:33] LABS: ANION GAP 5 mmol/L (8-16); CALCIUM, TOTAL 9.5 mg/dL (8.8-10.5); CARBON DIOXIDE 37 mmol/L (22-29); CHLORIDE 102 mmol/L (98-107); CREATININE 1.01 mg/dL (0.60-1.30); GLOMERULAR FILTR. RATE CALC > 60 mL/min (>60); GLUCOSE,RANDOM 124 mg/dL (70-110); POTASSIUM 3.9 mmol/L (3.5-5.1); SODIUM SERUM 144 mmol/L (136-145); UREA NITROGEN, BLOOD 18 mg/dL (7-18)
[2019-09-28 14:47] LABS: ALANINE AMINOTRANSFERASE 19 U/L (12-78); ALBUMIN 3.5 g/dL (3.4-5.0); ALKALINE PHOSPHATASE 106 U/L (46-116); ASPARTATE AMINOTRANSFERASE 10 U/L (15-37); BILIRUBIN,TOTAL 0.4 mg/dL (0.1-1.0); TOTAL PROTEIN, SERUM 7.3 g/dL (6.4-8.2)
[2019-09-28 14:50] LABS: B-TYPE NATRIURETIC PEPTIDE 11 pg/mL (0-100)
[2019-09-28 17:29] VITALS: BP 118/66
== END 2019-09-28 17:41 | disposition home or self-care (01) ==
LOC: EMS 12:54
DX: J44.1 Chronic obstructive pulmonary disease with (acute) exacerbation (principal); I10 Essential (primary) hypertension; Z79.899 Other long term (current) drug therapy
CPT/HCPCS: 36415; 71045; 80053; 83880; 84484; 85025; 93005; 94640; 99284; J7512; 94060

== ENCOUNTER 2020-03-14 10:28 | Emergency (ER) | payer OTHER ==
[~2020-03-14] VITALS: Ht 152.4 cm; Wt 107.3 kg
[~2020-03-14 10:28] MED LIST changes: -ADV100 IH; +ASPI-1111 PO; +ATOR40TA28 PO; +HYDR-1475 PO; -HYDR25TA PO; -LISI-662 PO; +METF-960 PO; -PRED10 PO; -PRED20 PO
[2020-03-14] MEDS ORDERED: SITA50 PO (11:10)
[2020-03-14] MEDS ORDERED: FAMO20 PO (11:10)
[2020-03-14] MEDS ORDERED: BECL10.62 IH (11:10)
[2020-03-14 11:13] LABS: BASOPHILS % (AUTO) 0.8 % (0.0-2.0); EOSINOPHILS % (AUTO) 0.9 % (1.0-6.0); LYMPHOCYTES # (AUTO) 2.2 K/uL (1.0-4.8); LYMPHOCYTES % (AUTO) 25.3 % (22.0-44.0); MEAN CORPUSCULAR HEMOGLOBIN 25.4 pg (26.0-34.0); MEAN CORPUSCULAR HGB CONC 31.4 G/dL (31.0-37.0); MEAN CORPUSCULAR VOLUME 81 fL (80-100); MONOCYTES # (AUTO) 0.6 K/uL (0.1-1.0); MONOCYTES % (AUTO) 6.4 % (2.0-9.0); NEUTROPHILS # (AUTO) 5.8 K/uL (1.8-7.7); NEUTROPHILS % (AUTO) 66.6 % (40.0-70.0); PLATELET COUNT (AUTO) 276 K/uL (150-450); RED BLOOD CELL COUNT(AUTO) 6.32 MIL/uL (4.00-5.20); RED CELL DISTRIBUTION WIDTH 18.7 % (11.5-14.5)
[2020-03-14 11:22] LABS: ANION GAP 4 mmol/L (8-16); CALCIUM, TOTAL 9.3 mg/dL (8.8-10.5); CARBON DIOXIDE 33 mmol/L (22-29); CHLORIDE 100 mmol/L (98-107); CREATININE 0.87 mg/dL (0.60-1.30); GLOMERULAR FILTR. RATE CALC > 60 mL/min (>60); GLUCOSE,RANDOM 148 mg/dL (70-110); SODIUM SERUM 137 mmol/L (136-145); UREA NITROGEN, BLOOD 19 mg/dL (7-18)
[2020-03-14 11:29] LABS: ALANINE AMINOTRANSFERASE 44 U/L (12-78); ALBUMIN 4.1 g/dL (3.4-5.0); ALKALINE PHOSPHATASE 115 U/L (46-116); ASPARTATE AMINOTRANSFERASE 64 U/L (15-37); BILIRUBIN,TOTAL 0.5 mg/dL (0.1-1.0); LIPASE 159 U/L (73-393)
[2020-03-14 12:10] VITALS: BP 139/81
== END 2020-03-14 12:20 | disposition home or self-care (01) ==
LOC: EMS 10:32
DX: R10.11 Right upper quadrant pain (principal); J45.909 Unspecified asthma, uncomplicated; I10 Essential (primary) hypertension; F17.200 Nicotine dependence, unspecified, uncomplicated; Z90.89 Acquired absence of other organs; Z79.82 Long term (current) use of aspirin; Z79.84 Long term (current) use of oral hypoglycemic drugs
CPT/HCPCS: 74176